=== PATIENT | female | born 1990 | race African-American/Black ===

== ENCOUNTER 2025-04-29 08:44 | Outpatient (REF) | payer SELFPAY ==
--- OUTSIDE RECORDS SUMMARY | 2025-04-28 11:30 | XMS_ITS | Encounter Summary ---
Author Organization [employer] Address [address] [place] [address] 7[address] [place] [address] Care Team Providers Care Residence Director Name Role Phone Mayda Foss MD Primary Care Provider + Encounter Details Date Type Department Care Team (Latest Contact Info) Description 04/28/2025 11:30 AM EST Office Visit [facility] [address] [place] [address] [phone] Mayda Foss MD [address] [place], [place] [phone] Gastroesophageal reflux disease, unspecified whether esophagitis present (Primary Dx); Class 2 severe obesity due to excess calories with serious comorbidity and body mass index (BMI) of 38.0 to 38.9 in adult; Elevated blood pressure reading; Recurrent major depressive disorder, in partial remission (CMS/HCC); Dietary counseling; Exercise counseling Social History Tobacco Use Types Packs/Day Years Used Date Smoking Tobacco: Never Passive Smoke Exposure: Never Smokeless Tobacco: Never Tobacco Cessation:Counseling Given: Not Answered Alcohol Answer Date Recorded How often do you have a drink containing alcohol ? 1 04/28/2025 How many drinks containing a lcohol do you have on a typical day when you are drinking? 0 04/28/2025 How often do you have six or more drinks on one occasion? 0 04/28/2025 Depression Answer Date Recorded Patient Health Questionnaire-9 Score 5 11/19/2024 Patient Health Questionnaire-9 Score 5 11/19/2024 Last PHQ-9: Questionnaire Data Not on file 0 11/19/2024 Depression Answer Date Recorded Patient Health Questionnaire-2 Score 2 11/19/2024 Comments Unknown Sex and Gender Information Value Date Recorded Sex Assigned at Female 03/27/2022 10:35 AM EDT Legal Sex Female 10:35 AM EDT Gender Identity Choose not to disclose 10:35 AM EDT Sexual Orientation Choose not to disclose 2021 10:35 AM EDT documented as of this encounter Last Filed Vital Signs Vital Sign Reading Time Taken Comments Blood Pressure 154/72 04/28/2025 11:46 AM EST Pulse 87 04/28/2025 11:46 AM EST Temperature 36.3 C (97.4 F) 04/28/2025 11:46 AM EST Respiratory Rate 20 04/28/2025 11:46 AM EST Oxygen Saturation 99% 04/28/2025 11:46 AM EST Inhaled Oxygen Concentration - - Weight 118 kg (261 lb) 04/28/2025 11:46 AM EST Height 176 cm (5' 9.29 ) 04/28/2025 11:46 AM EST Body Mass Index 38.22 04/28/2025 11:46 AM EST documented in this encounter Plan of Treatment Upcoming Encounters Date Type Department Care Team (Late st Contact Info) Description 06/30/2025 9:00 AM EST Office Visit [facility] [address] [place] [phone] Mayda Foss MD [address] [place] [address] Scheduled Orders Name Type Priority Associated Diagnoses Orde r Schedule CBC auto differential Lab Routine Gastroesophageal reflux disease, unspecified whether esophagitis present Expected: 04/28/2025 (Approximate), Expires: 04/28/2026 Comprehensive Metabolic Panel Lab Routine Gastroesophageal reflux disease, unspecified whether esophagitis present Class 2 severe obesity due to excess calories with serious comorbidity and body mass index (BMI) of 38.0 to 38.9 in adult Expected: 04/28/2025 (Approximate), Expires: 04/28/2026 TSH with Reflex to Free T4 Lab Routine Gastroesophageal reflux disease, unspecified whether esophagitis present Elevated blood pressure reading Expected: 04/28/2025 (Approximate), Expires: 04/28/2026 Helicobacter pylori Antigen, EIA, Stool Lab Routine Gastroesophageal reflux disease, unspecified whether esophagitis present Expected: 04/28/2025, Expires: 04/28/2026 POCT occult blood stool manually resulted Point of Care Testing Routine Gastroesophageal reflux disease, unspecified whether esophagitis present Ordered: 04/28/2025 documented as of this encounter Visit Diagnoses Diagnosis Gastroesophageal reflux disease, unspecified whether esophagitis present- Primary Class 2 severe obesity due to excess calories with serious comorbidity and body mass index (BMI) of 38.0 to 38.9 in adult Elevated blood pressure reading Elevated blood pressure reading without diagnosis of hypertension Recurrent major depressive disorder, in partial remission ([facility]) Dietary counseling Dietary surveillance and counseling Exercise counseling documented in this encounter Additional Health Concerns Assessment Noted Time PHQ-9 Depression Total Score: 5 11/20/19 4:47 PM EDT documented as of this encounter Care Teams Residence Director Relationship Specialty Start Date End Date Mayda Foss MD [address] [place] [phone] PCP - General Internal Medicine 11/19/24 documented as of this encounter
--- OUTSIDE RECORDS SUMMARY | 2025-04-29 09:02 | XMS_ITS | Encounter Summary ---
Author Organization [employer] Address [address] [place] [address] 7 [place] [address] Care Team Providers Care Horse Farm Manager Name Role Phone Mayda Foss MD Primary Care Provider + Encounter Details Date Type Department Care Team (Latest Contact Info) Description 04/27/2025 Travel Social History Tobacco Use Types Packs/Day Years Used Date Smoking Tobacco: Never Assessed Alcohol Answer Date Recorded How often do [...] AM EDT documented as of this encounter Plan of Treatment Upcoming Encounters Date Type Department Care Team (Late st Contact Info) Description 06/30/2025 9:00 AM EST Office Visit [facility] [address] [place] [address] Mayda Foss MD [address] [place], [place] [phone] documented as of this encounter Visit Diagnoses Not on filedocumented in this encounter Additional Health Concerns Assessment Noted Time PHQ-9 Depression Total Score: 5 11/20/19 4:47 PM EDT documented as of this encounter Care Teams Horse Farm Manager Relationship Specialty Start Date End Date Mayda Foss MD [address] [place] [address] PCP - General Internal Medicine 11/19/24 documented as of this encounter
--- OUTSIDE RECORDS SUMMARY | 2025-04-29 09:02 | XMS_ITS | Clinical Summary ---
Author Organization [facility] [address] [place] [address] [place] [phone] Phone Care Team Providers Care Supervisor Sterile Processing Name Role Phone Marcos Gallegos MD Primary Care Provider [phone] Allergies Active Allergy Reactions Criticality Noted Date Comments Egg 01/25/2021 Medications glycerin-polyca rbophl-carbomer (RepHresh) gel Place 1 Applicator vaginally three times a week. 2 Active cholecalciferol (VITAMIN D-3) 50 mcg (2,000 unit) capsule Take 1 capsule (2,000 Units total) by mouth 1 (one) time each day. 2 Active naproxen (NAPROSYN) 500 mg tablet Take 1 Tablet by mouth 2 times daily (with meals) for 14 days. 2 Active fluconazole (DIFLUCAN) 150 mg tablet Take 1 tablet (150 mg total) by mouth 1 (one) time. Active phenazopyridine (PYRIDIUM) 95 mg tablet Take 1 tablet (95 mg total) by mouth 3 (three) times a day after meals. Active drospirenone-et hinyl estradioL (OCELLA,RED,Y ASMIN) 3-0.03 mg per tabletIndicatio ns:PMDD (premenstrual dysphoric disorder) Take 1 tablet by mouth 1 (one) time each day. Skip hormone free week 84 tablet 4 5 08/19/19 26 Active sertraline (ZOLOFT) 50 mg tablet TAKE 1 TABLET BY MOUTH 1 TIME EACH DAY. 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 9) with comorbidity (CMS/HCC V24, CMS/HCC V28) 01/25/2021 PMDD (premenstrual dysphoric disorder) Overview (05/23/2024): Started on OCPs Dyspareunia in female 03/30/2020 Overview (05/23/2024): Last Assessment & Plan: I explained there is no evidence of infection or skin condition. I recommended she consider using regular lubricant such as coconut oil or silicone based lubricant with condoms, as well as positioning to avoid discomfort. She will try these things and return if not improving. Resolved Problems Problem Noted Date Diagnosed Date Resolved Date Vaginal discharge 03/30/2020 08/24/2024 Overview (05/23/2024): Last Assessment & Plan: Explained no evidence of infection today, but will send trichomonas antigen, yeast culture, and GC/CT testing. Surgical History Surgery Date Site/Laterality Comments WISDOM TOOTH EXTRACTION PROCEDURE: HISTORICAL WISDOM TEETH EXTRACTION Medical History Medical History Date Comments Asthma DX:Asthma Migraine 01/25/2021 DX:Migraine; COM MENT: Without Aura GERD (gastroesophageal reflu x disease) 01/25/2021 DX:GERD (gastroesophageal re flux disease) Dyspareunia in female 03/30/2020 DX:Dyspare unia in female PMDD (premenstrual dysphoric disorder) 09/16/2020 DX:PMDD (premenstrual dyspho luan disorder); COMMENT: Started on OCPs Severe obesity (BMI 35.0-39. 9) with comorbidity (CMS/HCC V24, CMS/HCC V28) 01/25/2021 DX:Severe obesity (BMI 35.0- 39.9) with comorbidity ([facility]) Vaginal discharge 03/30/2020 DX:Vaginal dis charge Other general counseling and advice for contraceptive management 03/30/2020 DX:Other general counseli ng and advice for contraceptive management Family History Medical History Relation Name Comments Hypertension Father Dad diabetes, CAD Lung cancer Maternal Grandfather Ovarian cancer Maternal Grandmother Breast cancer Other cousin paternal No Known Problems Paternal Grandfather Ovarian cancer Paternal Grandmother Relation Name Status Comments Father Dad Alive Maternal Grandfather Maternal Grandmother Mother Alive Other cousin Paternal Grandfather Paternal Grandmother Social History Tobacco Use Types Packs/Day Years Used Date Smoking Tobacco: Never Smokeless Tobacco: Never Alcohol Use Standard Drinks/Week Comments Yes 0 (1 standard drink = 0.6 oz pur e alcohol) Housing Instability Answer Date Recorde d Are you worried that in the next 2 months you may not have stable housing? No 08/18/2024 Food Access & Nutrition Answer Date Rec orded Do you have access to a vari ety of food including fruits and vegetables? Yes 08/18/2024 Access to Healthcare Answer Date Record ed Within the last 3 months, rosi kulkarni many times did you visit the emergency department for your medical care? 0 08/18/2024 Health Literacy Answer Date Recorded How often do you need to hav e someone help you when you read instructions, pamphlets, or other written material from your doctor or pharmacy? Never 08/18/2024 Caregiver: How often do you need to have someone help you when you read instructions, pamphlets, or other written material from your doctor or pharmacy? Not on file 08/18/2024 Financial Risk Answer Date Recorded How hard is it for you to pa y for the very basics like food, housing, medical care, and air conditioning / heating? Unable to respond 08/18/2024 Transportation Answer Date Recorded Has the lack of transportati on kept you from meetings, work, or from getting things needed for daily living? No Has the lack of transportati on kept you from medical appointments or from getting medications? No 08/18/2024 Social Isolation Answer Date Recorded How often do you feel lonely or isolated from those around you? Sometimes 08/18/2024 Food Risk Answer Date Recorded Within the past 12 months we worried whether our food would run out before we got money to buy more. Never true 08/18/2024 Within the past 12 months th e food we bought just didn't last and we didn't have money to get more. Never true 08/18/2024 Dependent Care Answer Date Recorded Do you need help finding or paying for care for your loved ones. For example, child development consultant or elderly care for an older adult? No 08/18/2024 Education Answer Date Recorded Do you think completing more education or training, like finishing a GED, going to college, or learning a trade, would be helpful for you? Yes 08/18/2024 Employment and Income Answer Date Recor ded During the last four weeks, have you been actively looking for work? No 08/18/2024 Living Situation Answer Date Recorded What is your living situation? Unrecognized valu e 08/18/2024 Comments No Sex and Gender Information Value Date Recorded Sex Assigned at Not on file Legal Sex Female 10:48 PM EST Gender Identity Not on file Sexual Orientation Not on file Obstetrics History * This document contains information received from the source organization and may not represent a complete record from that organization. Para Term AB IAB SAB Ectopic Multiple Livin g Live Births 1 Date Outcome GA Total Labor Labor/2nd/3rd Weight Sex Type Anes PTL Rosa A1 A5 Name Clin Last Filed Vital Signs Vital Sign Reading Time Taken Comments Blood Pressure 137/76 08/19/2024 9:05 AM EDT Pulse 96 08/19/2024 9:05 AM EDT Temperature - - Respiratory Rate 13 08/19/2024 9:05 AM EDT Oxygen Saturation - - Inhaled Oxygen Concentration - - Weight 116 kg (256 lb) 08/19/2024 9:05 AM EDT Height 172.7 cm (5' 8 ) 08/19/2024 9:05 AM EDT Body Mass Index 38.92 08/19/2024 9:05 AM EDT Plan of Treatment Health Maintenance Due Date Last Done Comments Pneumococcal Vaccine: Pediatrics (0 to 5 Years) and At-Risk Patients (6 to 49 Years) (1 of 2 - PCV) 2010 HPV Vaccines (1 - 3-dose SCDM series) 2018 Hepatitis B Vaccines (2 of 3 - 19+ 3-dose series) 08/20/2024 07/23/2024 Social Influencers of Health Screening 08/18/2025 08/18/2024 Cholesterol Screening (Lipid Panel) 01/20/2026 01/20/2021 Cervical Cancer Screening: HPV 11/13/2028 11/14/2023 DTaP,Tdap,and Td Vaccines (2 - Td or Tdap) 07/17/2034 07/17/2024 RSV Immunization Adult Patients (1 - 1-dose 75+ series) 2066 HIV Screening Completed 11/14/2023, 11/14/2023 Hepatitis C Screening Completed 11/14/2023 Depression Screening Completed 08/18/2024 COVID-19 Vaccine Completed 02/23/2025, , 03/02/2021, Additional history exists Influenza Vaccine Completed 02/23/2025, 07/17/2024 HIB Vaccines Aged Out No longer eligi ble based on patient's age to complete this topic Hepatitis A Vaccines Aged Out No long er eligible based on patient's age to complete this topic IPV Vaccines Aged Out No longer eligi ble based on patient's age to complete this topic MMR Vaccines Aged Out No longer eligi ble based on patient's age to complete this topic Meningococcal ACWY Vaccine Aged Out N o longer eligible based on patient's age to complete this topic Meningococcal B Vaccine Aged Out No l onger eligible based on patient's age to complete this topic RSV Immunization Patients Under 20 months Aged Out No longer eligible based on patient's age to complete this topic Varicella Vaccines Aged Out No longer eligible based on patient's age to complete this topic Procedures Procedure Name Priority Date/Time Associated Diagnosis Comments HPV Routine 11/14/2023 HEPATITIS C SCREENING Routine 11/14/2023 HIV SCREENING Routine 11/14/2023 LIPID PANEL Routine 01/20/2021 from Last 3 Months or Most Recently Relevant to Health Maintenance Results * Cervical Cancer Screening: HPV (11/14/2023) Cervical Cancer Screening: HPV abstracted, no interpretation us Historical Provider MD HEALTH MAINTENANCE Final Result * HIV Screening (11/14/2023) HIV Screening abstracted Historical Provider HEALTH MAINTENANCE Final Result * Hepatitis C Screening (11/14/2023) Hepatitis C Screening abstracted Historical Provider HEALTH MAINTENANCE Final Result * (ABNORMAL) Lipid panel (01/20/2021) LDL/HDL Ratio 7(A) 0 - 4 Triglycerides 101 0 - 150 mg/dL Cholesterol 241(A) 0 - 200 mg/dL HDL 33(A) >=40 mg/dL LDL Cholesterol 188(A) 0 - 100 mg/dL Blood Venous blood specimen / Unknown Historical Provider LAB BLOOD ORDERABLES Pauly l Result from Last 3 Months or Most Recently Relevant to Health Maintenance Insurance [facility] Care Teams Supervisor Sterile Processing Relationship Specialty Start Date End Date Marcos Gallegos MD [address] [place] [phone] PCP - General Internal Medicine 08/08/24
--- OUTSIDE RECORDS SUMMARY | 2025-04-29 09:02 | XMS_ITS | Clinical Summary ---
Author Organization [employer] Address [address] [place] [address] [address] [place] [address] Care Team Providers Care Barrel Rifler Broach Name Role Phone Mayda Foss MD Primary Care Provider + Allergies Active Allergy Reactions Criticality Noted Date Comments Egg Protein (Egg White) 01/25/2021 Medications Blood Pressure Monitoring (Blood Pressure Cuff) misc Use daily as prescribed 1 each 5 Active drospirenone-et hinyl estradiol (Michelle, Ocella) 3-0.03 MG tablet Take 1 tablet by mouth Once per day. 5 08/19/19 26 Active sertraline (Zoloft) 50 MG tablet Take 50 mg by mouth Once per day. 5 Active sucralfate (Carafate) 1 g tablet Take 1 tablet (1 g) by mouth before breakfast, before lunch, before evening meal, and at bedtime for 14 days. 56 tablet 5 05/12/20 25 Active lansoprazole (Prevacid) [address] capsule Take 1 capsule (30 mg) by mouth before breakfast. Do not crush or chew. 90 capsule 5 04/28/20 26 Active Active Problems Problem Noted Date Diagnosed Date Gastroesophageal reflux disease 04/28/2025 Class 2 severe obesity due t o excess calories with serious comorbidity and body mass index (BMI) of 38.0 to 38.9 in adult 04/28/2025 PMDD (premenstrual dysphoric disorder) 5 Assessment & Plan (11/19/2024 5:39 PM EDT): Did not improve with sertraline PRN. It may be worth to try different OCPs that she can tolerate and control her dysmenorrhea as well. Patient to continue sertraline daily for now follow-up with PCP and HOT STICK WORKER. I agreed to give the patient's time off from work this week until depressive symptoms resolved probably with change in hormonal levels. I offer referral to team for further evaluation but she declined. She has crisis number that she is able to reach out for safety. Follow-up with PCP Elevated blood pressure reading 11/19/2024 Assessment & Plan (11/19/2024 5:36 PM EDT): No history of hypertension, there is family history of hypertension. Counseled re low salt diet/increase moderate physical activity. Check home BP BIW and prn CP/GARCIA/PIMENTEL and follow-up with PCP as scheduled, advised to bring BP machine Major depressive disorder in partial remission 0 11/19/2024 Assessment & Plan (11/19/2024 5:40 PM EDT): Patient recently started on sertraline 50 mg, she follow-up with PCP to adjust medications. She declined referral to department for further evaluation. She feels safe at home and is able to reach out for safety. Patient has crisis number Dysmenorrhea 11/19/2024 Assessment & Plan (11/19/2024 5:40 PM EDT): She did not tolerate OCPs, needs to follow-up with HOT STICK WORKER or with PCP and probably try different medication or IUD. Follow-up with PCP in 1 week Encounters Date Type Department Care Team Description 04/28/2025 11:30 AM EST Office Visit [address] [phone] Mayda Foss MD Gastroesophageal reflux disease, unspecified whether esophagitis present (Primary Dx); Class 2 severe obesity due to excess calories with serious comorbidity and body mass index (BMI) of 38.0 to 38.9 in adult; Elevated blood pressure reading; Recurrent major depressive disorder, in partial remission (CMS/[facility]); Dietary counseling; Exercise counseling 04/27/2025 Travel 04/16/2025 Telephone [facility] [address] [place] [address] Mayda Foss MD Referral from Last 3 Months Social History Tobacco Use Types Packs/Day Years [...] not to disclose 2021 10:35 AM EDT Last Filed Vital Signs Vital Sign Reading [...] Mass Index 38.22 04/28/2025 11:46 AM EST Plan of Treatment Upcoming Encounters Date Type Department Care Team (Late st Contact Info) Description 06/30/2025 9:00 AM EST Office Visit [facility]INE [address] [place] [phone] Mayda Foss MD [address] [place] [phone] Health Maintenance Due Date Last Done Comments HIV Screening 1991 Lipid Panel 1991 SDOH Screening 1991 Family Planning (PISQ) 2006 HPV Vaccines (1 - 3-dose series) 2006 Hepatitis C Screening 2009 Pneumococcal Vaccine: Pediatrics (0 to 5 Years) and At-Risk Patients (6 to 49) Years (1 of 2 - PCV) 2010 Pap Smear 02/15/2012 Cervical Cancer Screening 2021 HPV/Cotest 2021 Hepatitis B Vaccines (3 of 3 - 19+ 3-dose series) 01/20/2025 08/20/2024, 07/23/2024 Depression Screening 11/19/2025 11/19/2024, 11/20/19 Disability Screening 04/27/2026 04/27/2025 Alcohol/Substance Use Screening 04/28/2026 04/28/2025 Tobacco Screening 04/28/2026 04/28/2025 DTaP/Tdap/Td Vaccines (2 - Td or Tdap) 07/17/2034 07/17/2024 Zoster Vaccines (1 of 2) 2041 RSV Patients and Patients Aged 60 years or older (1 - 1-dose 75+ series) 2066 COVID-19 Vaccine Completed 02/23/2025, , 03/02/2021, Additional [...] patient's age to complete this topic Meningococcal Vaccine Aged Out No german jennyfer eligible based on patient's age to complete this topic RSV under 20 months Aged Out No longe r eligible based on patient's age to complete this topic Rotavirus Vaccines Aged Out No longer eligible based on patient's age to [place] [phone] [facility] , [address] [place] [address] [place] [phone] [place] [phone] [place] [id number] Care Teams Barrel Rifler Broach Relationship Specialty Start Date End Date Mayda Foss MD [address] [place] [phone] PCP - General Internal Medicine 11/19/24
[2025-04-29 11:29] LABS: Hematocrit 32.5 % (37.0-47.0); Hemoglobin 9.6 g/dl (12.0-16.0); Imm Gran Abs Auto 0.05 X10*3/uL (0.00-0.03); Imm Gran Pct Auto 0.4 % (0.0-0.4); Lymphocytes Absolute Auto 5.2 X10*3/uL (1.2-4.9); MANUAL DIFF FLAG SCAN; Mean Corpuscular HGB Conc 29.5 g/dl (31.0-35.0); Mean Corpuscular Hemoglobin 21.7 pg (27.0-33.0); Mean Corpuscular Volume 73.5 fL (80.0-98.0); NRBC Abs Auto 0.000 X10*3/uL (0.0-0.012); NRBC Pct Auto 0.0 /100WBC (0.0-0.2); Platelet Count 623 X10*3/uL (160-400); Red Blood Count 4.42 X10*6/uL (4.20-5.50); SCAN SMEAR FLAG 1; White Blood Count 12.5 X10*3/uL (4.8-10.8)
[2025-04-29 11:44] LABS: Alanine Aminotransferase 11 U/L (0-31); Albumin Level 4.1 g/dL (3.5-5.0); Alkaline Phosphatase 89 U/L (39-117); Anion Gap 11 (12-20); Aspartate Amino Transferase 19 U/L (5-31); Blood Urea Nitrogen 11 mg/dL (9-16); Calcium 9.5 mg/dL (8.4-10.2); Carbon Dioxide 25 mmol/L (22-29); Chloride 107 mmol/L (96-108); Estimated Glomerular Filt Rate > 60; Potassium 3.9 mmol/L (3.3-5.1); Sodium 139 mmol/L (135-145); Total Protein 7.2 g/dL (6.5-8.0)
== END 2025-04-29 08:45 | disposition home or self-care (01) ==
LOC: HO.HHCL 08:44
PROVIDERS: PCP Internal Medicine; Visit Provider Internal Medicine
DX: Z13.29 Encounter for screening for other suspected endocrine disorder (principal); K21.9 Gastro-esophageal reflux disease without esophagitis; E66.812 Obesity, class 2; Z68.38 Body mass index [BMI] 38.0-38.9, adult; R03.0 Elevated blood-pressure reading, without diagnosis of hypertension
CPT/HCPCS: 36415; 80053; 84443; 85025; 87338